=== PATIENT | female | born 2005 | race Caucasian/White ===

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

== ENCOUNTER 2024-07-16 16:34 | Inpatient (IN) | payer BC ==
--- NOTE | 2024-07-16 19:35 | ED ---
Psych HPI - General Source: patient, family, RN notes reviewed Mode of arrival: ambulatory <SauloArielle - Last Filed: 07/16/24 23:30> <Helio Soliz - Last Filed: 07/17/24 00:00> - General Chief Complaint: Psychiatric Symptoms Stated Complaint: Mental Health Time Seen by Provider: 07/16/24 19:33 - History of Present Illness Initial Comments: 18-year-old female presenting to the ER for evaluation of overdose 3 days ago. States she attemped to commit suicide Tuesday night by taking 10 of her 100 mg Pristiq pills. States since then she has been experiencing nausea, vomiting, and diarrhea with occasional abdominal pain. Denies chest pain. No other health conditions. (Arielle Vernon) - Related Data Home Medications Medication Instructions Recorded Confirmed Desvenlafaxine [Pristiq ER] 100 mg PO HS 07/16/24 07/16/24 Norgestimate-Ethinyl Estradiol 1 tab PO HS 07/16/24 07/16/24 0.18/0.215/0.25mg-35mcg Allergies Allergy/AdvReac Type Severity Reaction Status Date / Time No Known Allergies Allergy Verified 07/16/24 20:43 Review of Systems ROS Other: All systems not noted in ROS Statement are negative. <Arielle Vernon - Last Filed: 07/16/24 23:30> ROS Other: All systems not noted in ROS Statement are negative. <Helio Soliz - Last Filed: 07/17/24 00:00> ROS Statement: Those systems with pertinent positive or pertinent negative responses have been documented in the HPI. Past Medical History Past Medical History: Asthma, Syncope History of Any Multi-Drug Resistant Organisms: None Reported Past Surgical History: Adenoidectomy, Breast Surgery Additional Past Surgical History / Comment(s): Breast reduction Past Psychological History: ADD/ADHD, Anxiety, Depression Smoking Status: Never smoker Past Alcohol Use History: Occasional Past Drug Use History: Marijuana <SauloArielle - Last Filed: 07/16/24 23:30> General Exam Limitations: no limitations General appearance: alert, in no apparent distress Head exam: Present: atraumatic, normocephalic, normal inspection Eye exam: Present: normal appearance, PERRL, EOMI. Absent: scleral icterus, c onjunctival injection, periorbital swelling Respiratory exam: Present: normal lung sounds bilaterally. Absent: respiratory distress, wheezes, rales, rhonchi, stridor Cardiovascular Exam: Present: regular rate, normal rhythm, normal heart sounds. Absent: systolic murmur, diastolic murmur, rubs, gallop, clicks GI/Abdominal exam: Present: soft, normal bowel sounds. Absent: distended, tenderness, guarding, rebound, rigid Neurological exam: Present: alert, oriented X3 Psychiatric exam: Present: normal affect, normal mood Skin exam: Present: warm, dry, intact, normal color. Absent: rash <Arielle Vernon - Last Filed: 07/16/24 23:30> Course Vital Signs 07/16/24 17:10 Temperature 98.6 F Pulse Rate 98 Respiratory 18 Rate Blood Pressure 125/67 O2 Sat by Pulse 100 Oximetry Medical Decision Making - Lab Data Result diagrams: 07/16/24 20:02 07/16/24 20:02 - EKG Data -: EKG Interpreted by Me <Arielle Vernon - Last Filed: 07/16/24 23:30> - Lab Data Result diagrams: 07/16/24 20:02 07/16/24 20:02 <Helio Soliz - Last Filed: 07/17/24 00:00> - Medical Decision Making Was pt. sent in by a medical professional or institution ([facility] R Rose, [employer]PECT[employer], urgent care, hospital, or care home...) When possible be specific @ -No Did you speak to anyone other than the patient for history (EMS, parent, family, police, friend...)? What history was obtained from this source @ -Mother supplemented history Did you review nursing and triage notes (agree or disagree)? Why? @ -I reviewed and agree with nursing and triage notes Were old charts reviewed (outside hosp., previous admission, EMS record, old EKG, old radiological studies, urgent care reports/EKG's, care home records)? Report findings @ -No old charts were reviewed Differential Diagnosis (chest pain, altered mental status, abdominal pain women, abdominal pain men, vaginal bleeding, weakness, fever, dyspnea, syncope, headache, dizziness, GI bleed, back pain, seizure, CVA, palpatations, mental health, musculoskeletal)? @ -Differential Mental Health Depression, anxiety, bipolar, psychosis, schizophrenia, borderline personality, situational depression, adjustment disorder, behavioral disorder, brain tumor, malingering, substance abuse, encephalopathy, medication reaction, dementia, hypothyroidism, degenerative neurologic disorder, lupus.... This is not meant to be all-inclusive list EKG interpreted by me (3pts min.). @ -As above X-rays interpreted by me (1pt min.). @ -None done CT interpreted by me (1pt min.). @ -None done U/S interpreted by me (1pt. min.). @ -None done What testing was considered but not performed or refused? (CT, X-rays, U/S, labs )? Why? @ -None What meds were considered but not given or refused? Why? @ -None Did you discuss the management of the patient with other professionals (professionals i.e. , PA, [employer] INSPECTOR, lab, RT, psych nurse, social director, rad technologist, teacher, prison officer, dependency case manager)? Give summary @ -Poison control was contacted who recommended no further workup at this time Was smoking cessation discussed for >3mins.? @ -No Was critical care preformed (if so, how long)? @ -No Were there social determinants of health that impacted care today? How? (Homelessness, low income, unemployed, alcoholism, drug addiction, transportation, low edu. Level, literacy, decrease access to med. care, correction, rehab)? @ -No Was there de-escalation of care discussed even if they declined (Discuss DNR or withdrawal of care, Hospice)? DNR status @ -No What co-morbidities impacted this encounter? (DM, HTN, Smoking, COPD, CAD, C ancer, CVA, ARF, Chemo, Hep., AIDS, mental health diagnosis, sleep apnea, morbid obesity)? @ -None Was patient admitted / discharged? Hospital course, mention meds given and route, prescriptions, significant lab abnormalities, going to OR and other pertinent info. @ -18-year-old female presenting for overdose 3 days ago. Patient took 1200 mg of Pristiq and attempt to commit suicide. She is experiencing nausea/vomiting/diarrhea. Vital signs remarkable for tachycardia, otherwise unremarkable. Patient was provided with IV fluids and analgesics. EKG reveals sinus tachycardia with no ST changes. Lab work remarkable for white blood cell count 11, urinalysis 2+ ketones. Otherwise negative workup. Patient was cleared to be seen by EPS at this time. Case signed out to my ED attending Dr. Soliz pending EPS evaluation. (Arielle Vernon) Patient care signed out to me by previous shift physician, Arielle Vernon. Pending EPS evaluation. Approximately 12 AM notified by EPS that patient will be admitted to inpatient psych. Clinical certification completed. (Helio Soliz) - Lab Data Lab Results 07/16/24 07/16/24 07/16/24 Range/Units 19:50 19:50 19:50 WBC (4.0-11.0) k/uL RBC (3.80-5.40) m/uL Hgb (11.4-16.0) gm/dL Hct (34.0-46.0) % MCV (80.0-100.0) fL MCH (25.0-35.0) pg MCHC (31.0-37.0) g/dL RDW (11.5-15.5) % Plt Count (150-450) k/uL MPV Neutrophils % % Lymphocytes % % Monocytes % % Eosinophils % % Basophils % % Neutrophils # (1.3-7.7) k/uL Lymphocytes # (1.0-4.8) k/uL Monocytes # (0-1.0) k/uL Eosinophils # (0-0.7) k/uL Basophils # (0-0.2) k/uL Sodium (137-145) mmol/L Potassium (3.5-5.1) mmol/L Chloride (98-107) mmol/L Carbon Dioxide (22-30) mmol/L Anion Gap mmol/L BUN (7-17) mg/dL Creatinine (0.52-1.04) mg/dL Est GFR (CKD-EPI)AfAm (>60 ml/min/1.73 sqM) Est GFR (CKD-EPI)NonAf (>60 ml/min/1.73 sqM) Glucose (74-99) mg/dL Plasma Lactic Acid Jesus Manuel (0.7-2.0) mmol/L Calcium (8.4-10.2) mg/dL Total Bilirubin (0.2-1.3) mg/dL AST (14-36) U/L ALT (4-34) U/L Alkaline Phosphatase (38-126) U/L Total Protein (6.3-8.2) g/dL Albumin (3.5-5.0) g/dL Lipase (23-300) U/L Urine Color Yellow Urine Appearance Clear (Clear) Urine pH 6.0 (5.0-8.0) Ur Specific [place] 1.032 (1.001-1.035) Urine Protein Trace H (Negative) Urine Glucose (UA) Negative (Negative) Urine Ketones 2+ H (Negative) Urine Blood Negative (Negative) Urine Nitrite Negative (Negative) Urine Bilirubin Negative (Negative) Urine Urobilinogen <2.0 (<2.0) mg/dL Ur Leukocyte Esterase Negative (Negative) Urine HCG, Qual Not Detected (Not Detectd) Salicylates mg/dL Urine Opiates Screen Not Detected (NotDetected) Ur Oxycodone Screen Not Detected (NotDetected) Urine Methadone Screen Not Detected (NotDetected) Acetaminophen ug/mL Ur Barbiturates Screen Not Detected (NotDetected) U Tricyclic Antidepress Not Detected (NotDetected) Ur Phencyclidine Scrn Not Detected (NotDetected) Ur Amphetamines Screen Not Detected (NotDetected) U Methamphetamines Scrn Not Detected (NotDetected) U Benzodiazepines Scrn Not Detected (NotDetected) Urine Cocaine Screen Not Detected (NotDetected) U Marijuana (THC) Screen Detected H (NotDetected) 07/16/24 07/16/24 07/16/24 Range/Units 20:02 20:02 20:02 WBC 11.1 H (4.0-11.0) k/uL RBC 4.96 (3.80-5.40) m/uL Hgb 14.1 (11.4-16.0) gm/dL Hct 41.8 (34.0-46.0) % MCV 84.2 (80.0-100.0) fL MCH 28.4 (25.0-35.0) pg MCHC 33.7 (31.0-37.0) g/dL RDW 12.3 (11.5-15.5) % Plt Count 296 (150-450) k/uL MPV 7.7 Neutrophils % 68 % Lymphocytes % 26 % Monocytes % 4 % Eosinophils % 1 % Basophils % 1 % Neutrophils # 7.6 (1.3-7.7) k/uL Lymphocytes # 2.8 (1.0-4.8) k/uL Monocytes # 0.4 (0-1.0) k/uL Eosinophils # 0.1 (0-0.7) k/uL Basophils # 0.1 (0-0.2) k/uL Sodium 142 (137-145) mmol/L Potassium 3.5 (3.5-5.1) mmol/L Chloride 104 (98-107) mmol/L Carbon Dioxide 27 (22-30) mmol/L Anion Gap 11 mmol/L BUN 11 (7-17) mg/dL Creatinine 0.68 (0.52-1.04) mg/dL Est GFR (CKD-EPI)AfAm >90 (>60 ml/min/1.73 sqM) Est GFR (CKD-EPI)NonAf >90 (>60 ml/min/1.73 sqM) Glucose 122 H (74-99) mg/dL Plasma Lactic Acid Jesus Manuel 1.7 (0.7-2.0) mmol/L Calcium 9.9 (8.4-10.2) mg/dL Total Bilirubin 0.7 (0.2-1.3) mg/dL AST 25 (14-36) U/L ALT 26 (4-34) U/L Alkaline Phosphatase 85 (38-126) U/L Total Protein 7.8 (6.3-8.2) g/dL Albumin 5.0 (3.5-5.0) g/dL Lipase 93 (23-300) U/L Urine Color Urine Appearance (Clear) Urine pH (5.0-8.0) Ur Specific [place] (1.001-1.035) Urine Protein (Negative) Urine Glucose (UA) (Negative) Urine Ketones (Negative) Urine Blood (Negative) Urine Nitrite (Negative) Urine Bilirubin (Negative) Urine Urobilinogen (<2.0) mg/dL Ur Leukocyte Esterase (Negative) Urine HCG, Qual (Not Detectd) Salicylates <1.0 mg/dL Urine Opiates Screen (NotDetected) Ur Oxycodone Screen (NotDetected) Urine Methadone Screen (NotDetected) Acetaminophen <10.0 ug/mL Ur Barbiturates Screen (NotDetected) U Tricyclic Antidepress (NotDetected) Ur Phencyclidine Scrn (NotDetected) Ur Amphetamines Screen (NotDetected) U Methamphetamines Scrn (NotDetected) U Benzodiazepines Scrn (NotDetected) Urine Cocaine Screen (NotDetected) U Marijuana (THC) Screen (NotDetected) - EKG Data EKG Comments: EKG reveals sinus tachycardia no ST changes. Ventricular rate 101 bpm, TX interval 156, QRS duration 94, QT/QTc 328/386 (Arielle Vernon) Disposition <Arielle Vernon - Last Filed: 07/16/24 23:30> <Helio Soliz - Last Filed: 07/17/24 00:00> Clinical Impression: Attempted suicide Disposition: TRANSFER TO PSYCH HOSP/UNIT Referrals: Nisreen Brown DO [Primary Care Provider] - 1-2 days
[2024-07-16] MEDS: SODIUM CHLORIDE 0.9% 1,000 ML IV STA (20:04)
[2024-07-16 20:15] LABS: Basophils # (A) 0.1 k/uL (0-0.2); Basophils % (A) 1 %; Eosinophils # (A) 0.1 k/uL (0-0.7); Eosinophils % (A) 1 %; HCT 41.8 % (34.0-46.0); HGB 14.1 gm/dL (11.4-16.0); Lymphocytes # (A) 2.8 k/uL (1.0-4.8); Lymphocytes % (A) 26 %; MCH 28.4 pg (25.0-35.0); MCHC 33.7 g/dL (31.0-37.0); MCV 84.2 fL (80.0-100.0); Mean Platelet Volume 7.7; Monocytes # (A) 0.4 k/uL (0-1.0); Monocytes % (A) 4 %; Neutrophils # (A) 7.6 k/uL (1.3-7.7); Neutrophils % (A) 68 %; Platelet Count 296 k/uL (150-450); RBC 4.96 m/uL (3.80-5.40); RDW 12.3 % (11.5-15.5); WBC 11.1 k/uL (4.0-11.0)
[2024-07-16 20:26] LABS: Appearance,Urine Clear (Clear); Bilirubin,Urine Negative (Negative); Blood,Urine Negative (Negative); Color,Urine Yellow; Glucose,Urine (UA) Negative (Negative); Ketones,Urine 2+ (Negative); Leukocyte Esterase,Urine Negative (Negative); Nitrite,Urine Negative (Negative); Protein,Urine Trace (Negative); Specific Gravity,Urine 1.032 (1.001-1.035); Urobilinogen,Urine <2.0 mg/dL (<2.0)
[2024-07-16 20:31] LABS: Amphetamine Screen,Urine Not Detected (NotDetected); Barbiturate Screen,Urine Not Detected (NotDetected); Benzodiazepines Screen,Urine Not Detected (NotDetected); Cocaine Screen,Urine Not Detected (NotDetected); Methadone Screen, Urine Not Detected (NotDetected); Opiate Screen,Urine Not Detected (NotDetected); Oxycodone Screen, Urine Not Detected (NotDetected); Phencyclidine Screen,Urine Not Detected (NotDetected); Tricyclic Antidepressant,Urine Not Detected (NotDetected); Urn Cannabinoid Scrn Detected (NotDetected)
[2024-07-16 20:44] LABS: ALT 26 U/L (4-34); AST 25 U/L (14-36); Acetaminophen <10.0 ug/mL; African American GFR (CKD) >90 (>60 ml/min/1.73 sqM); Alkaline Phosphatase 85 U/L (38-126); Anion Gap 11 mmol/L; Blood Urea Nitrogen 11 mg/dL (7-17); Calcium 9.9 mg/dL (8.4-10.2); Carbon Dioxide 27 mmol/L (22-30); Chloride 104 mmol/L (98-107); Glucose 122 mg/dL (74-99); Lipase 93 U/L (23-300); Non-African American GFR(CKD) >90 (>60 ml/min/1.73 sqM); Potassium 3.5 mmol/L (3.5-5.1); Salicylate <1.0 mg/dL; Sodium 142 mmol/L (137-145); Total Bilirubin 0.7 mg/dL (0.2-1.3); Total Protein 7.8 g/dL (6.3-8.2)
[2024-07-16] MEDS: KETOROLAC 15 MG/ML 1 ML VIAL IVP STA (20:45)
[2024-07-17] MEDS ORDERED: MAGNESIUM HYDROXIDE 2,400 MG/30 ML CUP PO PRN (01:35)
[2024-07-17] MEDS ORDERED: IBUPROFEN 600 MG TAB PO PRN (01:35)
[2024-07-17] MEDS ORDERED: LORazepam 1 MG TAB PO PRN (01:35)
[2024-07-17] MEDS ORDERED: haloperidoL 5 MG TAB PO PRN (01:35)
[2024-07-17] MEDS ORDERED: MAG HYDROX/AL HYDROX/SIMETH 355 ML BOTTLE PO PRN (01:35)
[2024-07-17] MEDS ORDERED: ACETAMINOPHEN TAB 325 MG TAB PO PRN (01:35)
[2024-07-17] MEDS ORDERED: diphenhydrAMINE 25 MG CAP PO PRN (01:35)
[2024-07-17] MEDS ORDERED: HALOPERIDOL LACTATE 5 MG/ML 1 ML VIAL IM PRN (01:35)
[2024-07-17] MEDS ORDERED: LORazepam 2 MG/ML INJ IM PRN (01:35)
[2024-07-17] MEDS: NICOTINE 14MG/24HR PATCH TRANSDERM SCH (08:20)
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
--- NOTE | 2024-07-17 18:58 | P.MDCNMH ---
History of Present Illness H&P Date: 07/17/24 This is a very pleasant 18-year-old female who presented to the emergency department with mother for suicidal ideation with increased depression. Apparently patient took 10-12 extra prescribed Pristiq pills on Tuesday as a suicide attempt. Patient having increasing nausea and vomiting and abdominal discomfort with no intake came to the hospital for further evaluation. Patient voluntarily admitted to [facility] for further psychiatric evaluation for suicidal ideation with depression. Patient does not follow with [facility] outpatient and follows with Dr. Ku as primary care provider in the outpatient setting with past medical history of asthma, anxiety, depression. Patient reports she occasionally eats edible marijuana, very rarely drinks, and does not smoke. On exam patient denies chest pain or shortness of breath. Patient reports nausea that has subsided and continues to have no real appetite. Patient reports to feeling exhausted and has not slept in days she reports. REVIEW OF SYSTEMS: CONSTITUTIONAL: No fever, no malaise, reports of fatigue. HEENT: No recent visual problems or hearing problems. Denied any sore throat. CARDIOVASCULAR: No chest pain, orthopnea, PND, no palpitations, no syncope. PULMONARY: No shortness of breath, no cough, no hemoptysis. GASTROINTESTINAL: No diarrhea, reports of occasional nausea, no vomiting, no abdominal pain. NEUROLOGICAL: No headaches, no weakness, no numbness. HEMATOLOGICAL: Denies any bleeding or petechiae. GENITOURINARY: Denies any burning micturition, frequency, or urgency. MUSCULOSKELETAL/RHEUMATOLOGICAL: Denies any joint pain, swelling, or any muscle pain. ENDOCRINE: Denies any polyuria or polydipsia. The rest of the 14-point review of systems is negative. PHYSICAL EXAMINATION: GENERAL: The patient is asleep although easily arousable,alert and oriented x3, not in any acute distress. Well developed, well nourished. HEENT: Pupils are round and equally reacting to light. EOMI. No scleral icterus. No conjunctival pallor. Normocephalic, atraumatic. No pharyngeal erythema. No thyromegaly. CARDIOVASCULAR: S1 and S2 present. No murmurs, rubs, or gallops. PULMONARY: Chest is clear to auscultation, no wheezing or crackles. ABDOMEN: Soft, nontender, nondistended, normoactive bowel sounds. No palpable organomegaly. MUSCULOSKELETAL: No joint swelling or deformity. EXTREMITIES: No cyanosis, clubbing, or pedal edema. NEUROLOGICAL: Gross neurological examination did not reveal any focal deficits. SKIN: No rashes. Assessment: Suicidal ideation with attempted overdose, 10-12 prescribed Pristiq 100 mg on 07/13/2024 History of depression history of asthma, not in exacerbation History of ADD/ADHD Occasional THC edible use GI prophylaxis Full code Plan: Patient was voluntarily admitted to [facility]. for suicidal ideation with attempted overdose and increased depression Relationship issues with her significant other and at home issues having increased depression and has not followed with [facility] or psychiatry outpatient Home medications reviewed and resumed as appropriate Awaiting a.m. labs Encouraged patient to increase activity as tolerated, follow-up with group therapy sessions, and medication compliance Patient has been instructed to follow-up with primary care provider on discharge from [facility]. Thank you kindly for this consultation. Please do not hesitate to contact us The impression and plan of care has been dictated by Payton Tinajero, Nurse Practitioner as directed. Dr. Chandra MD I have performed a history and examination and MDM of this patient, discussed the same with the dictator, and agree with the dictator's assessment and plan as written ,documented as a scribe. Based on total visit time, I have performed more than 50% of the visit. Past Medical History Past Medical History: Asthma, Syncope History of Any Multi-Drug Resistant Organisms: None Reported Past Surgical History: Adenoidectomy, Breast Surgery Additional Past Surgical History / Comment(s): Breast reduction Past Anesthesia/Blood Transfusion Reactions: No Reported Reaction Past Psychological History: ADD/ADHD, Anxiety, Depression Smoking Status: Never smoker Past Alcohol Use History: Occasional Past Drug Use History: Marijuana - Past Family History Father Family Medical History: Unable to Obtain Mother Family Medical History: Unable to Obtain Medications and Allergies Home Medications Medication Instructions Recorded Confirmed Type Desvenlafaxine [Pristiq ER] 100 mg PO HS 07/16/24 07/16/24 History Norgestimate-Ethinyl Estradiol 1 tab PO HS 07/16/24 07/16/24 History 0.18/0.215/0.25mg-35mcg Allergies Allergy/AdvReac Type Severity Reaction Status Date / Time No Known Allergies Allergy Verified 07/16/24 20:43 Physical Exam Vitals: Vital Signs Temp Pulse Pulse Resp BP BP Pulse Ox 07/17/24 02:46 98.2 F 110 H 18 153/84 99 07/17/24 02:00 98.1 F 94 18 142/99 100 07/16/24 17:10 98.6 F 98 18 125/67 100 Intake and Output 07/16/24 07/17/24 07/17/24 22:59 06:59 14:59 Other: Weight 84.368 kg 84.425 kg Cranial Nerve Examination - Cranial Nerves Cranial Nerve I- Olfactory: Intact Cranial Nerve II- Optic: Intact Cranial Nerve III- Oculomotor: Intact Cranial Nerve IV- Trochlear: Intact Cranial Nerve V- Trigeminal: Intact Cranial Nerve - Abducens: Intact Cranial Nerve VII- Facial: Intact Cranial Nerve VIII- Auditory: Intact Cranial Nerve IX- Glossopharyngeal: Intact Cranial Nerve X- Vagus: Intact Cranial Nerve XI- Accessory: Intact Cranial Nerve XII- Hypoglossal: Intact Results CBC & Chem 7: 07/16/24 20:02 07/16/24 20:02 Labs: Abnormal Lab Results - Last 24 Hours (Table) 07/16/24 07/16/24 07/16/24 Range/Units 19:50 19:50 20:02 WBC 11.1 H (4.0-11.0) k/uL Glucose (74-99) mg/dL Urine Protein Trace H (Negative) Urine Ketones 2+ H (Negative) U Marijuana (THC) Screen Detected H (NotDetected) 07/16/24 Range/Units 20:02 WBC (4.0-11.0) k/uL Glucose 122 H (74-99) mg/dL Urine Protein (Negative) Urine Ketones (Negative) U Marijuana (THC) Screen (NotDetected)
[2024-07-17] MEDS ORDERED: ARTIFICIAL TEARS-HYPROMELLOSE DROPS 15 ML BTL BOTH EYES PRN (20:42)
[2024-07-17] MEDS: DESVENLAFAXINE SUCCINATE 50 MG TAB.ER.24H PO SCH (20:57)
[2024-07-17] MEDS: ARIPiprazole 5 MG TAB PO SCH (20:57)
[2024-07-17] MEDS: TRIAMCINOLONE ACET 0.5% CREAM 15 GM TUBE TOPICAL SCH (21:14)
[2024-07-18 10:21] LABS: ALT 23 U/L (4-34); AST 24 U/L (14-36); Albumin 4.4 g/dL (3.5-5.0); Alkaline Phosphatase 76 U/L (38-126); Bilirubin,Unconjugated 0.5 mg/dL (0.0-1.1); Total Bilirubin 0.4 mg/dL (0.2-1.3)
[2024-07-18] MEDS ORDERED: MINERAL OIL-WHITE PETROLATUM 120 GM JAR TOPICAL PRN (10:24)
--- NOTE | 2024-07-18 11:48 | P.PN ---
Progress Note - Text Progress Note Date: 07/18/24 Interval History: Patient was seen laying in bed and was directable and agreeable to speak with underwriter in the office. She expresses difficulty sleeping overnight and states feeling "tired" today. She was agreeable with starting trazodone tonight for sleep. She reports flaky rash on her left eyelid and several places on bilateral arms states she has tried hydrocortisone and several creams with no effect. She was encouraged to make an appointment with a private duty rn to get treatment for this. She expressed difficulties with boyfriend, stating she still loves him however he has heard her. CBT was implemented and patient was able to list several pros and cons to this relationship but ultimately decided on having a serious conversation with boyfriend to determine the future of their relationship. She reports irritability to be stable today. When asked about suicidal thoughts, she denied but did mention it was "too early to tell". At this time patient denies any homicidal ideations, intent or plan. Patient denies any auditory, visual hallucinations and denies any paranoia or delusions. Patient denies any side effects from the medications and has been compliant with meds. Mental Status Exam: General Appearance: Patient appears to be stated age is alert, directable, and c ooperative. She is wearing glasses and dressed in home clothing with fair hygiene/grooming. There is notably flaky rash on her eyelid, left side. Behavior: Patient is calmly seated without any agitated behavior. Less tearful than yesterday Speech: Patient's speech is fluent and nonpressured. Mood/Affect: Mood is improving mildly, affect is congruent and constricted. Suicidality/Homicidality: Patient denies having any suicidal or homicidal ideation intent or plan. Perceptions: Patient denies any visual hallucinations and denies any auditory hallucinations Though content/process: There is no evidence of any delusional thought content and thought process is linear and logical. Memory and concentration: AOX3, grossly intact for the purposes of this session Judgment and insight: Improving mildly Assessment Bipolar disorder, current episode depressed Rule out cyclothymic disorder Generalized anxiety disorder Cluster B traits Cannabis use disorder, mild Plan: -Patient continues to meet criteria for inpatient psychiatric admission for symptom stabilization and safety. Patient has signed adult voluntary form and medication consent and was placed in patient's chart. -Medications: Increase Pristiq to 100 mg at bedtime for depression, start trazodone 50 mg at bedtime for insomnia, continue Abilify 5 mg at bedtime for mood stabilization. Patient made aware of the limited supply of medications to be filled once discharge given recent suicide attempt -When necessary Ativan and Haldol for agitation/aggression. -Labs: Reviewed -SW on board for discharge planning. Encouraged the patient to participate in milieu. Anticipate discharge back home with mother on Tuesday pending stabilization in suicidal ideations
[2024-07-18 16:21] LABS: Chol/HDL Ratio 2.89 Ratio; LDL Cholesterol,Calculated 73.2 mg/dL (0.0-131.0)
[2024-07-18] MEDS: NORGESTIMATE ETHINYL ESTRADIOL PO SCH (21:14)
[2024-07-18] MEDS: DESVENLAFAXINE SUCCINATE 50 MG TAB.ER.24H PO SCH (22:32)
[2024-07-18] MEDS: traZODone HCL 50 MG TAB PO SCH (22:32)
[2024-07-19 07:05] VITALS: RESP 16
--- NOTE | 2024-07-19 10:51 | P.PN ---
Progress Note - Text Progress Note Date: 07/19/24 Interval History: Patient was seen laying in bed and was directable and agreeable to speak with clinical writer in the office. She reports feeling better today and that she feels more hopeful. She reports sleeping well last night with the trazodone. She states speaking to her mother and boyfriend and that things are well between them however her mother is not on board with him returning back home with them given the recent events. She states her irritability has improved since being started on a mood stabilizer. At this time patient denies any suicidal or homicidal ideations, intent or plan. Patient denies any auditory, visual hallucinations and denies any paranoia or delusions. Patient denies any side effects from the medications and has been compliant with meds. Mental Status Exam: General Appearance: Patient appears to be stated age is alert, directable, and cooperative. She is wearing glasses Behavior: Patient is calmly seated without any agitated behavior. Speech: Patient's speech is fluent and nonpressured. Mood/Affect: Mood is improving mildly, affect is congruent and blunted. Suicidality/Homicidality: Patient denies having any suicidal or homicidal ideation intent or plan. Perceptions: Patient denies any visual hallucinations and denies any auditory hallucinations Though content/process: There is no evidence of any delusional thought content and thought process is linear and goal-directed. Memory and concentration: AOX3, grossly intact for the purposes of this session Judgment and insight: Improving mildly Assessment Bipolar disorder, current episode depressed Rule out cyclothymic disorder Generalized anxiety disorder Cluster B traits Cannabis use disorder, mild Plan: -Patient continues to meet criteria for inpatient psychiatric admission for symptom stabilization and safety. Patient has signed adult voluntary form and medication consent and was placed in patient's chart. -Medications: Continue Pristiq 100 mg at bedtime for depression, trazodone 50 mg at bedtime for insomnia, Abilify 5 mg at bedtime for mood stabilization -When necessary Ativan and Haldol for agitation/aggression. -Labs: Reviewed -SW on board for discharge planning. Encouraged the patient to participate in milieu. Anticipate discharge back home with mother tomorrow
[2024-07-20 07:05] VITALS: BP 130/63; PULSE 76; TEMP 97.9
--- NOTE | 2024-07-20 12:15 | P.DS ---
Providers Date of admission: 07/17/24 01:33 Expected date of discharge: 07/20/24 Attending physician: Ely Robles MD Consults: 07/17/24 01:35 Consult Physician Routine Consulting Provider: [facility] Consult Reason/Comments: H & P Do you want consulting provider notified?: Yes, Notify in am Primary care physician: Nisreen Brown - Discharge Diagnosis(es) (1) Bipolar disorder current episode depressed Current Visit: Yes Status: Acute Priority: High (2) Generalized anxiety disorder Current Visit: Yes Status: Acute Priority: Medium (3) Cluster B personality disorder Current Visit: Yes Status: Acute Priority: Medium (4) Cannabis use disorder, mild, abuse Current Visit: Yes Status: Acute Priority: Low Hospital Course: Admission HPI: Admission note was completed by story writer "Patient presented to the hospital with mental health concerns. EPS note revealed, "Patient arrived at ER due to police officer recommending patient assessment, patient states he made this recommendation because she was "not feeling well", patient refused to elaborate at this time. Verbalizes she currently has outpatient mental health treatment through [facility]. Patient verbalizes she last spoke to her psychiatrist today, and has an appointment on (07/19/2024). Patient denies previous inpatient psychiatric hospitalizations. Patient verbalizes feeling down and depressed. Patient reports inability to sleep and attend to hygiene due to lack of motivation and energy. Patient states she sleeps approx 2 hours per night with difficulty falling asleep and staying asleep due to nightmares. Patient verbalizes feeling helpless and hopeless. Patient verbalizes increased appetite, and overeating. Patient denies suicidal ideation, denies history of suicide attempts or self harm. Patient denies homicial ideations or hallucinations. Patient verbalizes mild paranoia at times, feeling on edge, and like people are watching her or talking about her. Patient verbalizes medication management at home including, pristiq, atarax, seroquel, and catapres. Patient verbalizes compliance with medications but feels like they are not working anymore. Patient presents during assessment as guarded and tearful. Patient reluctant to answer questions and difficult to get answers or long pauses before responding to assessment questions. Patient verbalize history of substance abuse but denies any history of substance abuse treatment. Patient states history of alcohol use, methamphetamines, cocaine, and marijuana. Patient UDS+ Marijuana and Tricyclic antidepressants. Petition was completed on patient in ER by patient mother related to lack of attending basic physical needs, minimizing symptoms and not attending her counselling appointments, and expressing suicidal ideations." P atient seen and evaluated on the unit and was agreeable with speaking to story writer in office. She states her police officer ultimately sent her here after she became more depressed after recent positive UDS for meth. She states this was positive last month she has not used meth since but does admit to using cannabis daily which she finds helpful for anxiety and appetite. She states for the past 2 months ever since being released from skilled nursing for OWI she has been experiencing depressive symptoms including sleep difficulties, not attending to her ADLs, low energy and anhedonia. She states her home environment is a trigger for her as prior to going to skilled nursing she was living independently but now has to live with her parents. She reports generalized anxiety described as being a worrier, along w ith racing thoughts, restlessness and feeling on edge. She reports questionable auditory and visual hallucinations described as hearing someone call her voice and seeing things out of the corner of her eye. Patient does report suicidal ideations however did mention this is more passive in nature as she adamantly denied any plan or intent for this. Patient denies any homicidal ideations intent or plan. Patient denies any flight of ideas racing thoughts and increased in goal directed behavior. Patient admits to using cannabis and vaping daily." Hospital course: Upon admission to the unit patient was directable and agreeable to commence treatment and signed adult voluntary form.. Patient got along well with other patients on the unit and followed unit protocol. Patient was compliant with the medications and denied any side effects throughout hospital course. Patient was started on Pristiq and this was increased to 100 mg at bedtime for depression, trazodone 50 mg at bedtime for insomnia, Abilify increased to 5 mg at bedtime for mood stabilization. Patient spoke of her stressors and engaged in therapy both group and individual. Patient was also seen by medical team for history and physical exam. Throughout the course of the hospitalization patient gradually improved with regards to mood, anxiety, sleep and became more future oriented with improved insight and judgment. On the day of discharge patient denied any suicidal or homicidal ideations intent or plan denied any auditory or visual hallucinations. The patient denied any access to guns or weapons. Patient denied any paranoia and did not endorse any delusions. Patient does have a significant history of substance abuse and was counseled on abstaining from all substances including alcohol and marijuana. Patient was also counseled on the medications and need for regular compliance and was encouraged to follow- up with their outpatient appointment for mental health and also for primary care. Prior to discharge a family meeting will be arranged by social worker clinical to answer any questions and ensure safety upon discharge incuding making sure that guns/weapons are either removed from the home or locked away. Mental status exam: General Appearance: Patient appears to be stated age is alert, pleasant, and cooperative. Patient is in no acute distress and has improved hygiene and grooming Behavior: Patient is calmly seated without any agitated behavior. Speech: Patient's speech is fluent and nonpressured. Mood/Affect: Patient reports their mood is "better", affect is congruent and euthymic. Suicidality/Homicidality: Patient denies having any suicidal or homicidal ideation intent or plan. Perceptions: Patient denies any auditory or visual hallucinations. Though content/process: There is no evidence of any delusional thought content and thought process is linear and goal-directed. More future oriented Memory and concentration: AOX3, grossly intact for the purposes of this session. Can spell "WORLD" backwards correctly. Judgment and insight: Fair Impression: Bipolar disorder, current episode depressed Rule out cyclothymic disorder Generalized anxiety disorder Cluster B traits Cannabis use disorder, mild Plan: -Continue with discharge today as patient has improved and stabilized psychiatrically and is not currently an imminent threat to themself and/or others. -Continue medications: Pristiq 100 mg at bedtime for depression, trazodone 50 mg at bedtime for insomnia, Abilify 5 mg at bedtime for mood stabilization. Please note patient was given a limited prescription given recent suicide attempt -Patient was counseled on the need for medication compliance and appropriate follow-up at mental health and also primary care for medical issues. Patient verbalized understanding and agreed. -Social work to help coordinate patients discharge today arrange for and conduct family meeting to ensure safety upon discharge and answer any questions/concerns. also to ensure safe home environment that guns/weapons are either removed from the home or locked away. Social work also to arrange for patients follow up appointments with [facility] counseling for psychiatric care along with follow up with primary care provider. -Patient counseled on abstaining from recreational drugs and marijuana and alcohol. Was informed/educated on the adverse effects on their physical and mental health. Patient verbally agreed and understood. -Patient was instructed to return to the hospital or seek immediate medical care if their psychiatric or medical symptoms do worsen or reoccur. Abnormal Labs 07/16/24 07/16/24 07/16/24 19:50 19:50 20:02 WBC 11.1 H Glucose Urine Protein Trace H Urine Ketones 2+ H U Marijuana (THC) Screen Detected H 07/16/24 20:02 WBC Glucose 122 H Urine Protein Urine Ketones U Marijuana (THC) Screen Vital Signs Temp 97.9 F 07/20/24 07:04 Pulse 76 07/20/24 07:04 Resp 16 07/20/24 07:04 BP 130/63 07/20/24 07:04 Pulse Ox 99 07/20/24 07:04 FiO2 Allergies Allergy/AdvReac Type Severity Reaction Status Date / Time No Known Allergies Allergy Verified 07/16/24 20:43 Plan - Discharge Summary New Discharge Prescriptions: New ARIPiprazole [Abilify] 5 mg PO HS 7 Days #7 tab traZODone HCL [Desyrel] 50 mg PO HS 7 Days #7 tab Desvenlafaxine Succinate [Pristiq ER] 100 mg PO HS tab Continue Norgestimate-Ethinyl Estradiol 0.18/0.215/0.25mg-35mcg 1 tab PO HS Desvenlafaxine [Pristiq ER] 100 mg PO HS 7 Days #7 tab Discharge Medication List Norgestimate-Ethinyl Estradiol 0.18/0.215/0.25mg-35mcg 1 tab PO HS 07/16/24 [History] ARIPiprazole [Abilify] 5 mg PO HS 7 Days #7 tab 07/20/24 [Rx] Desvenlafaxine Succinate [Pristiq ER] 100 mg PO HS tab 07/20/24 [Rx] Desvenlafaxine [Pristiq ER] 100 mg PO HS 7 Days #7 tab 07/20/24 [Rx] traZODone HCL [Desyrel] 50 mg PO HS 7 Days #7 tab 07/20/24 [Rx] Follow up Appointment(s)/Referral(s): [facility] [Outside] - 07/25/24 11:00 am (07/25 @ 11:00 with Joe Valenzuela ) Nisreen Brown DO [Primary Care Provider] - 1-2 days Patient Instructions/Handouts: Bipolar Disorder (DC), Generalized Anxiety Disorder (GEN) Activity/Diet/Wound Care/Special Instructions: [facility] Discharge Info Avoid the use of street drugs and alcohol. Take all medications as prescribed. When you are in need of refills on your medications, please contact your outpatient medical provider and/or outpatient psychiatrist. Please go to your scheduled outpatient appointments for aftercare treatment. If symptoms return or become worse, call the crisis line at or and/or visit the nearest emergency room for assistance. National Suicide and Crisis Lifeline - call or text 000 Discharge Disposition: HOME SELF-CARE
== END 2024-07-20 12:24 | disposition home or self-care (01) | DRG 885 ==
LOC: EC 16:34 → 3MHU 07-17 01:33
PROVIDERS: ADMIT Psychiatry & Neurology Psychiatry; ATTEND Psychiatry & Neurology Psychiatry
DX: F31.30 Bipolar disorder, current episode depressed, mild or moderate severity, unspecified (principal); R45.851 Suicidal ideations; F41.1 Generalized anxiety disorder; F12.10 Cannabis abuse, uncomplicated; F17.290 Nicotine dependence, other tobacco product, uncomplicated; J45.909 Unspecified asthma, uncomplicated; F90.9 Attention-deficit hyperactivity disorder, unspecified type; R21 Rash and other nonspecific skin eruption; Z91.51 Personal history of suicidal behavior; Z56.0 Unemployment, unspecified; Z79.899 Other long term (current) drug therapy; Z81.8 Family history of other mental and behavioral disorders
CPT/HCPCS: 36415; 80053; 80061; 80076; 80143; 80179; 80306; 81003; 81025; 82075; 83036; 83605; 83690; 84443; 85025; 87635; 93005; 96361; 96374; 99285